=== PATIENT | male | born 2005 | race Two or more races ===

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

== ENCOUNTER 2023-03-14 08:55 | Emergency (ER) | payer OTHER ==
[~2023-03-14] VITALS: Ht 167.6 cm; Wt 61.2 kg
[~2023-03-14 08:55] MED LIST: ALBUTEROL2.5 MG/3 M IH; PROVENTIL HFA6.7 GM IH; SINGULAIR 10MG10 MG PO; SYMBICORT 16010.2 GM IH; ZYNCOF 20-400120 ML PO; ZYRTEC10 M3 PO
[2023-03-14 11:26] LABS: HEMATOCRIT 39.4 % (39.0-48.0); HEMOGLOBIN 13.5 g/dL (13-16.00); MEAN CELL VOLUME 84.3 fL (80.0-100.00); MEAN CORPUSCULAR HEMOGLOBIN 28.9 pg (27.00-32.0); MEAN CORPUSCULAR HGB CONC 34.3 g/dl (32.0-36.0); PLATELET COUNT 262 K/uL (150-450); RED BLOOD COUNT 4.68 M/uL (4.00-6.00); RED CELL DISTRIBUTION WIDTH 13.4 % (11.5-14.5)
== END 2023-03-14 15:56 | disposition home or self-care (01) ==
LOC: ER 08:55 → EMR PED 09:08
PROVIDERS: Emergency Medicine
DX: J06.9 Acute upper respiratory infection, unspecified (principal); H60.90 Unspecified otitis externa, unspecified ear; Z20.822 Contact with and (suspected) exposure to COVID-19; Z87.09 Personal history of other diseases of the respiratory system